=== PATIENT | female | born 1960 | race Two or more races ===

== ENCOUNTER 2023-08-04 23:16 | Emergency (ER) | payer MEDICAID ==
[~2023-08-04] VITALS: Ht 152.4 cm; Wt 112.3 kg
[2023-08-04 23:38] VITALS: BP 135/58; PULSE 101; RESP 16; TEMP 98
[2023-08-05] MEDS: TraMADol HCL 50 MG TABLET PO ONE (00:20)
[2023-08-05] MEDS: KETOROLAC TROMETHAMINE 30 MG/ML VIAL IM ONE (00:21)
== END 2023-08-05 01:53 | disposition home or self-care (01) ==
LOC: EMS 23:16
DX: M25.512 Pain in left shoulder (principal); I10 Essential (primary) hypertension; Z98.890 Other specified postprocedural states; Z88.8 Allergy status to other drugs, medicaments and biological substances
CPT/HCPCS: 99283; 29105; 73030; 96372; J1885